=== PATIENT | female | born 1985 ===

== ENCOUNTER 2017-10-31 13:05 | Emergency (ER) | payer OTHER ==
[~2017-10-31] VITALS: Ht 157.5 cm; Wt 67.6 kg
[~2017-10-31 13:05] MED LIST: ATARAX25 MG PO; FOLIC ACID1 MG; MEDROLPACK PO; ZYRTEC10 M3 PO; ZYRTEC10 MG PO
== END 2017-10-31 14:01 | disposition home or self-care (01) ==
LOC: ER 13:05
DX: S91.341A Puncture wound with foreign body, right foot, initial encounter (principal); W26.8XXA Contact with other sharp object(s), not elsewhere classified, initial encounter; Y93.89 Activity, other specified; Y92.89 Other specified places as the place of occurrence of the external cause; Y99.8 Other external cause status